=== PATIENT | male | born 1970 | race Caucasian/White ===

== ENCOUNTER 2017-08-11 12:32 | Inpatient (IN) | payer OTHER ==
[~2017-08-11] VITALS: Ht 172.7 cm; Wt 95.3 kg
--- NOTE | 2017-08-11 15:10 | NUR ---
PREADMISSION Pt 47 y/o male received in intake office. Pt states came from home. Pt alert and oriented to name, place, and time. Perrla. Skin warm and dry to touch. Respirations even and unlabored. Bilateral hand tremors noted. Pt anxious. Initial hy=240/103, p=103, o2=97%@ra, r=16, and T=98.0. Pt appears disheveled. Educated pt on unit rules with acknowledgement.
[2017-08-11] MEDS ORDERED: ACETAMINOPHEN 325 MG TABLET PO PRN (15:15)
[2017-08-11] MEDS ORDERED: MIRALAX 17 GM POWD.PACK PO PRN (15:15)
[2017-08-11] MEDS ORDERED: IBUPROFEN 400 MG TABLET PO PRN (15:15)
[2017-08-11] MEDS ORDERED: diphenhydrAMINE 50 MG CAPSULE PO PRN (15:15)
[2017-08-11] MEDS ORDERED: LORAZEPAM 2 MG/1 ML VIAL IM PRN (15:15)
[2017-08-11] MEDS ORDERED: MAGNESIUM HYDROXIDE 30 ML LIQUID UDC PO PRN (15:15)
[2017-08-11] MEDS ORDERED: MAG HYDROX/AL HYDROX/SIMETH 30 ML LIQUID UDC PO PRN (15:15)
[2017-08-11] MEDS ORDERED: THIAMINE HCL 200 MG/2 ML VIAL IM ONE (15:15)
[2017-08-11] MEDS ORDERED: LORAZEPAM 1 MG TABLET PO PRN ×2 (15:15)
[2017-08-11] MEDS ORDERED: ONDANSETRON 4 MG/2 ML VIAL IM PRN (15:15)
[2017-08-11] MEDS ORDERED: LOPERAMIDE HCL 2 MG CAPSULE PO PRN ×2 (15:15)
[2017-08-11] MEDS ORDERED: ONDANSETRON ODT 4 MG TAB.RAPDIS SL PRN (15:15)
--- NOTE | 2017-08-11 15:15 | NUR ---
ADMISSION Pt 47 y/o male received in intake office. Pt states came from home. Pt alert and oriented to name, place, and time. Perrla. Skin warm and dry to touch. Respirations even and unlabored. Bilateral hand tremors noted. Pt anxious. Initial ds=465/103, p=103, o2=97%@ra, r=16, and T=98.0. Initial ciwa=4. Pt appears disheveled. Pt states does not have a PCP. Pt also states this his 1st time in detox. Pt stated that he is having a hard time to quit drinking etoh and states it is consuming his time instead of spending time with his kids. Pt states drinking etoh has affected his life in a negative way. Pt states, " I just want the urge to stop.". Pt denies any medical histort. Pt also states has never had a sz. Pt denies any HI/SI. Oriented pt to room and unit. Bed on lowest position with side rails x2 up for safety. Call light within reach. substance hx: - beer ( [employer] hard lemonade) 6 cans day, 3-4 times a week x 2 years ( binge). Last drink was 08/10/17 and had 6 cans. total 29 years. -vodka 2-3 shots a day 1-2 times a week x 2 years. Last had 2 shots on 08/10/17. total 29 years. medical hx: Pt denies any medical history tx hx: Pt states this is his 1st time in detox.
[2017-08-11 15:46] LABS: *AMPHETAMINE, URINE NEGATIVE (NEGATIVE); *BARBITURATE, URINE NEGATIVE (NEGATIVE); *CANNABINOID, URINE NEGATIVE (NEGATIVE); *COCCAINE, URINE NEGATIVE (NEGATIVE); *OPIATE, URINE NEGATIVE (NEGATIVE); *PHENCYCLIDINE SCREEN,URINE NEGATIVE (NEGATIVE)
[2017-08-11 15:57] LABS: BASOPHILS # (AUTO) 0.2 K/uL (0.0-8.0); BASOPHILS % (AUTO) 2.3 % (0.0-2.0); EOSINOPHILS # (AUTO) 0.2 K/uL (0.0-0.7); EOSINOPHILS % (AUTO) 1.7 % (0.0-7.0); HEMATOCRIT 40.4 % (36.7-47.1); HEMOGLOBIN 13.3 g/dL (12.5-16.3); LYMPHOCYTES # (AUTO) 2.6 K/uL (20.0-40.0); LYMPHOCYTES % (AUTO) 25.8 % (20.5-51.5); MEAN CORPUSCULAR HGB CONC 33 g/dL (32.5-36.3); MEAN CORPUSCULAR VOLUME 75.9 fL (73.0-96.2); MONOCYTES # (AUTO) 1.2 K/uL (2.0-10.0); MONOCYTES % (AUTO) 11.5 % (0.0-11.0); NEUTROPHILS # (AUTO) 5.9 K/uL (1.8-8.9); NEUTROPHILS % (AUTO) 58.7 % (38.5-71.5); PLATELET COUNT (AUTO) 275 K/uL (152-348); RED BLOOD CELL COUNT(AUTO) 5.32 MIL/uL (4.06-5.63)
[2017-08-11 16:00] VITALS: BP 136/97
[2017-08-11] MEDS: CLONIDINE HCL 0.1 MG TABLET PO PRN (16:01)
--- NOTE | 2017-08-11 16:03 | NUR ---
PRN Pt with rw=039/103. Catapres po prn per MD order given and tolerated well.
[2017-08-11 16:06] LABS: ETHANOL < 3 MG/DL (0-0)
[2017-08-11 16:10] LABS: ALANINE AMINOTRANSFERASE 98 U/L (16-63); ALKALINE PHOSPHATASE 149 U/L (50-136); AMYLASE 83 U/L (25-115); ASPARTATE AMINOTRANSFERASE 59 U/L (15-37); BILIRUBIN,TOTAL 0.5 mg/dL (0.2-1.0); CARBON DIOXIDE 30 mmol/L (21-32); CHLORIDE 106 mmol/L (98-107); CREATININE 1.1 mg/dL (0.6-1.3); GLUCOSE 106 mg/dL (74-106); MAGNESIUM 1.7 mg/dL (1.8-2.4); POTASSIUM 3.9 mmol/L (3.5-5.1); TOTAL PROTEIN, SERUM 7.6 g/dL (6.4-8.2)
[2017-08-11 16:24] LABS: UREA NITROGEN, BLOOD 10 mg/dL (7-18)
--- NOTE | 2017-08-11 17:03 | NUR ---
PRN EVAL Pt with kp=986/78
[2017-08-11] MEDS ORDERED: MAGNESIUM OXIDE 400 MG TABLET PO ONE (17:30)
--- NOTE | 2017-08-11 18:44 | NUR ---
END OF SHIFT Pt 47 y/o male admitted for etoh withdrawal. Pt alert and oriented to name, place, and time. Perrla. Skin warm and dry to touch. Respirations even and unlabored. Bilateral hand tremors noted. Encouraged to maintain hygiene. Pt with anxiety noted during assessment. Pt was seen by MD. Pt observed mostly isolative to room since arriving this afternoon. Last ciwa= 4@1600. Bed on lowest position with side rails x2 up for safety. Call light within reach.
[2017-08-11 20:00] VITALS: BP 138/93
--- NOTE | 2017-08-11 20:00 | NUR ---
Start of Shift Note Received a 47 y/o male px, admitted for medically supervised withdrawal from ETOH. Px is placed on PRN Ativan. Last reported CIWA 4 by AM shift nurse. During the rounds at 1999, px is awake inside his room standing. Px appears unshaven with good eye contact. No complaints made. Px stated "My anxiety minimal maybe 2/10." Px was encouraged to drink 2-3 L of water a day or as tolerated. Bedside on lowest position, side rails up 2x and call light within reach. We'll continue to monitor.
[2017-08-11] MEDS ORDERED: FAMOTIDINE 20 MG TABLET PO PRN (20:30)
[2017-08-12] VITALS: BP 112/69
[2017-08-12 04:00] VITALS: BP 121/71
--- NOTE | 2017-08-12 04:00 | NUR ---
CIWA deferred CIWA deferred at 0000 and 0400 due to the px is sleeping, to assess if the px is awake per doctor's order. We'll continue to monitor.
--- NOTE | 2017-08-12 07:00 | NUR ---
End of Shift Note During the shift, px slept most of the time. No complaints made. No PRN medications given. Px's oral intake is 1 L, voided 2x, with No BM. Px slept for 9 hours. At 0630, px is asleep on bed in left side lying position. Last CIWA 4. Bed on lowest position, side rails up 2x and call light within reach. We'll continue to monitor. Px endorsed to AM shift nurse.
--- NOTE | 2017-08-12 07:19 | NUR ---
START OF SHIFT Pt 47 y/o male admitted for etoh withdrawal. Pt received in room on bed with eyes closed resting, but easily arousable to name. Pt alert and oriented to name, place, and time. Perrla. Skin warm and dry touch. Respirations even and unlabored. Bilateral hand tremors noted. Pt appears disheveled. Empty water bottles scattered throughout the room. Encouraged to maintain hygiene. It was reported that pt slept for 9 hours last night. Last ciwa=4 reported @0400. Pt is on prn ativan. Bed on lowest position with side rails x2 up for safety. Call light within reach.
[2017-08-12 08:00] VITALS: BP 122/75
[2017-08-12 08:06] LABS: HEPATITIS B SURFACE AG Negative (Negative)
[2017-08-12] MEDS: MULTIVITAMINS,THERAPEUTIC TABLET PO SCH (08:10)
[2017-08-12] MEDS: FOLIC ACID 1 MG TABLET PO SCH (08:10)
[2017-08-12] MEDS: THIAMINE HCL 100 MG TABLET PO SCH (08:10)
[2017-08-12] MEDS ORDERED: TUBERCULIN,PURIF.PROT.DERIV. 5 TU/0.1 ML TEST ID ONE (09:00)
[2017-08-12 12:00] VITALS: BP 148/88
[2017-08-12] MEDS: CLONIDINE HCL 0.1 MG TABLET PO PRN (13:20)
--- NOTE | 2017-08-12 13:22 | NUR ---
PRN Pt with ca=108/88. Catapres po prn per MD order given and tolerated well.
--- NOTE | 2017-08-12 14:22 | NUR ---
PRN EVAL Pt with gk=863/80.
[2017-08-12 16:00] VITALS: BP 118/83
--- NOTE | 2017-08-12 18:53 | NUR ---
END OF SHIFT Pt 47 y/o male admitted for etoh withdrawal. Pt alert and oriented to name, place, and time. Perrla. Skin warm and dry to touch. Respirations even and unlabored. Bilateral hand tremors noted. Pt appears disheveled. Empty water bottles scattered throughout the room. Encouraged to maintain hygiene. Pt observed mostly isolative to room this morning. Pt did attend group activity today. Pt was seen by MD today. Pt medication compliant and tolerated well. No ASE noted. Ciwas= 4@0800, 4@1200, and 4@1600. Pt is on prn ativan. Bed on lowest position with side rails x2 up for safety. Call light within reach.
--- NOTE | 2017-08-12 19:40 | NUR ---
START OF SHIFT NOTE Received report from outgoing nurse. Pt. is in his room. PT. is a/o to person, place, time, and situation. Pt. was admitted for ETOH withdrawal. Pt. is presenting with an anxious and agitated mood, worried demeanor, and a flat affect. Pt.'s V/S remained stable throughout the previous shift. Pt. received PRN Catopress @ 1300. Last CIWA 4 @ 1600. Pt.'s bed is lowered and call light within reach. Pt. will continue to be monitored and his needs met.
[2017-08-12 20:00] VITALS: BP 138/88
--- NOTE | 2017-08-13 | NUR ---
RN NOTE CIWA and V/S deferred. Pt. is in bed, eyes closed, and breathing is unlabored and even.
--- NOTE | 2017-08-13 05:32 | NUR ---
CIWA deferred. Pt. in bed, eyes closed, and breathing even and unlabored.
--- NOTE | 2017-08-13 07:05 | NUR ---
Endorsed pt. to oncoming nurse. Pt. is in room and is a/o to person, place, time, and situation. Pt. is presenting with anxious mood, flat affect, and depressed demeanor. Pt. received no PRN medications during shift. V/S remained stable throughout shift. Pt. fluid intake was 1550 ml. Pt. voided 2 times and slept for 6.25 hrs. Last CIWA 6 @ 2000. Call light within reach. Pt. will continue to be monitored.
--- NOTE | 2017-08-13 07:30 | NUR ---
START OF SHIFT Pt 47 y/o male admitted for etoh withdrawal. Pt received in room on bed with eyes closed resting, but easily arousable to name. Pt alert and oriented to name, place, and time. Perrla. Skin warm and dry touch. Respirations even and unlabored. Bilateral hand tremors noted. Pt anxious this morning concerned about discharge. Pt appears disheveled. Food wrappings scattered throughout throom. Encouraged to maintain hygiene. It was reported that pt slept for 6.5 hours last night. Last ciwa=6 reported @2100. Pt is on prn ativan. Bed on lowest position with side rails x2 up for safety. Call light within reach.
[2017-08-13 08:00] VITALS: BP 126/74
[2017-08-13] MEDS: THIAMINE HCL 100 MG TABLET PO SCH (08:36)
[2017-08-13] MEDS: FOLIC ACID 1 MG TABLET PO SCH (08:36)
[2017-08-13] MEDS: MULTIVITAMINS,THERAPEUTIC TABLET PO SCH (08:36)
[2017-08-13 12:19] VITALS: BP 134/92
[2017-08-13] MEDS ORDERED: IBUP-1953 PO (15:48)
[2017-08-13] MEDS ORDERED: FAMO20TA8 PO (15:48)
[2017-08-13] MEDS ORDERED: CLON0.1T14 PO (15:48)
[2017-08-13] MEDS ORDERED: DIPH50CA37 PO (15:48)
[2017-08-13 16:00] VITALS: BP 134/89
--- NOTE | 2017-08-13 18:25 | NUR ---
END OF SHIFT Pt 47 y/o male admitted for etoh withdrawal. Pt alert and oriented to name, place, and time. Perrla. Skin warm and dry to touch. Respirations even and unlabored. Bilateral hand tremors noted. Pt appears disheveled. Empty water bottles and clothes scattered throughout the room. Encouraged to maintain hygiene. Pt observed mostly isolative to room this morning. Pt attended group activity today. Pt was seen by MD today. Pt medication compliant and tolerated well. No ASE noted. Ciwas= 4@0800, 4@1200, and 4@1600. Pt is on prn ativan. Bed on lowest position with side rails x2 up for safety. Call light within reach. Pt is scheduled to be discharged.
--- NOTE | 2017-08-13 19:25 | NUR ---
START OF SHIFT Patient is a 47-year-old male admitted on 08/11/17 for ETOH (beer, vodka) withdrawal. Patient is not currently on a taper, with PRN Ativan on hand with CIWA parameters. Patient's last CIWA was 4 per day shift. Patient received no PRN medications today. Patient is scheduled for discharge tomorrow. Upon assessment, patient complains of anxiety and appears agitated. Patient states, "I'm ready to leave tomorrow." Patient is on fall and seizure precautions with no history of seizure. Safety measures in place, side rails up x2, bed locked in low position, call light within reach. Will continue to monitor.
[2017-08-13 20:00] VITALS: BP 122/86
[2017-08-14] VITALS: BP 118/82
--- NOTE | 2017-08-14 | NUR ---
CIWA DEFERRED CIWA deferred due to patient sleeping at this time; to be assessed and scored while patient is awake. Patient's respirations are even and unlabored, 16/min. Safety measures in place, side rails up x2, bed locked in low position, call light within reach. Will continue to monitor.
[2017-08-14 04:00] VITALS: BP 112/80
--- NOTE | 2017-08-14 04:00 | NUR ---
CIWA DEFERRED CIWA deferred at 0400 due to patient sleeping; to be assessed and scored while patient is awake. Patient's respirations are even and unlabored, 16/min. Safety measures in place, side rails up x2, bed locked in low position, call light within reach. Will continue to monitor.
--- NOTE | 2017-08-14 07:05 | NUR ---
END OF SHIFT Patient is a 47-year-old male admitted on 08/11/17 for ETOH (beer, vodka) withdrawal. Patient is not currently on a taper, with PRN Ativan on hand with CIWA parameters. Patient's last CIWA was 4. Patient received no PRN medications today. Patient is scheduled for discharge today. Patient slept for 7 hours, total intake of 1,500mL, void x3, stool x0. Patient continues on fall and seizure precautions with no history of seizure. Safety measures in place, side rails up x2, bed locked in low position, call light within reach. Will endorse to day shift.
--- NOTE | 2017-08-14 07:38 | NUR ---
Start of shift note; Received report from night nurse. Patient is a 47 year old male admitted on 08/11/17 for ETOH withdrawals. Patient was placed on PRN medications. Patient completed treatment without any adverse reactions. Patient is medically cleared for discharge today per MD. Patient slept for 7 hours. Patient appears anxious and nervous about upcoming discharge, educated patient regarding the importance of continuation of sobriety, patient verbalized understanding. All safety measures secured. Will continue to monitor patient.
[2017-08-14 08:00] VITALS: BP 124/85
[2017-08-14] MEDS: MULTIVITAMINS,THERAPEUTIC TABLET PO SCH (08:24)
[2017-08-14] MEDS: FOLIC ACID 1 MG TABLET PO SCH (08:24)
[2017-08-14] MEDS: THIAMINE HCL 100 MG TABLET PO SCH (08:24)
--- NOTE | 2017-08-14 09:20 | NUR ---
Discharge note; Patient is AOx4. Patient completed treatment without any adverse reactions. Patient is medically cleared for discharge today per MD. Patient denies S/I and H/I. Patient left the hospital in a stable condition. Met all needs.
== END 2017-08-14 09:20 | disposition other institution (70) | DRG 895 ==
LOC: SRC 14:36
PROVIDERS: ADMIT Internal Medicine; ATTEND Internal Medicine
PROC: HZ2ZZZZ Detoxification Services for Substance Abuse Treatment (ICD-10-PCS; principal; 2017-08-11)
PROC: HZ41ZZZ Group Counseling for Substance Abuse Treatment, Behavioral (ICD-10-PCS; 2017-08-12)
DX: F10.230 Alcohol dependence with withdrawal, uncomplicated (principal); K70.9 Alcoholic liver disease, unspecified; E83.42 Hypomagnesemia; I15.9 Secondary hypertension, unspecified; K29.20 Alcoholic gastritis without bleeding; Y90.0 Blood alcohol level of less than 20 mg/100 ml; Z81.1 Family history of alcohol abuse and dependence; Z83.3 Family history of diabetes mellitus
CPT/HCPCS: 36415; 70030-TC; 80307; 83735; 85025; 86580; 86592; 86705; 86803; 87340; 87806; G0480